=== PATIENT | male | born 1980 | race Caucasian/White ===

== ENCOUNTER 2020-05-15 20:58 | Emergency (ER) | payer OTHER ==
[2020-05-15 21:05] VITALS: BMI 30.4
[2020-05-15 21:51] LABS: BASO % 0.2 % (0-2.0); EOS % 4.4 % (0-4.5); HEMATOCRIT 47.4 % (35.4-49); HEMOGLOBIN 15.5 GM/dL (11.7-16.9); MCH 26.9 pg (25.7-33.7); MCHC 32.7 g/dl (32.0-35.9); MEAN CELL VOLUME 82.2 fl (80-96); MEAN PLT VOLUME 8.3 fl (7.5-11.1); MONO % 10.7 % (3.8-10.2); NEUT % 40.7 % (42.8-82.8); PLATELET COUNT 209 K/MM3 (134-434); RBC 5.76 M/mm3 (4.00-5.60)
[2020-05-15 22:00] LABS: INR 1.07 (0.83-1.09); PROTHROMBIN TIME (PATIENT) 12.9 SEC (9.7-13.0)
[2020-05-15 22:02] LABS: CHLORIDE 106 mmol/L (98-107); POTASSIUM 4.2 mmol/L (3.5-5.1); SODIUM 138 mmol/L (136-145)
[2020-05-15 22:03] LABS: ACTIVATED PTT 33.7 SECONDS (25.2-36.5)
[2020-05-15 22:04] LABS: ALBUMIN 4.3 g/dl (3.4-5.0); ANION GAP 4 MMOL/L (8-16); BLOOD UREA NITROGEN 23.8 mg/dL (7-18); CALCIUM 9.1 mg/dL (8.5-10.1); CO2 28 mmol/L (21-32); GLUCOSE,RANDOM 88 mg/dL (74-106)
[2020-05-15 22:07] LABS: SGOT/AST 23 U/L (15-37); SGPT/ALT 47 U/L (13-61)
[2020-05-15 22:08] LABS: CREATININE 1.1 mg/dL (0.55-1.3)
[2020-05-15 22:09] LABS: BILIRUBIN,TOTAL 0.3 mg/dL (0.2-1); TOT PROT 7.2 g/dl (6.4-8.2)
[2020-05-15 22:10] LABS: ALK PHOS 100 U/L (45-117)
[2020-05-15] MEDS ORDERED: ACETAMINOPHEN 500 MG TABLET (FP) PO ONE (22:24)
[2020-05-15] MEDS ORDERED: ACETAMINOPHEN 325 MG TABLET (FP) ONE (23:05)
[2020-05-16 01:27] VITALS: BP 127/76; PULSE 82; TEMP 98.9
== END 2020-05-16 01:27 | disposition home or self-care (01) ==
LOC: JER 20:58
DX: R07.89 Other chest pain (principal); R21 Rash and other nonspecific skin eruption
CPT/HCPCS: 36415; 71045-TC-FY; 80053; 82550; 82553; 84484; 85025; 85610; 85730; 93005; 93010; 99285-25

== ENCOUNTER 2020-08-09 08:06 | Emergency (ER) | payer OTHER ==
[2020-08-09 08:16] VITALS: BP 121/68; PULSE 87; TEMP 97.8; BMI 30.4
== END 2020-08-09 10:28 | disposition home or self-care (01) ==
LOC: JER 08:06
DX: S29.011A Strain of muscle and tendon of front wall of thorax, initial encounter (principal)
CPT/HCPCS: 71046-TC-FY; 93005; 93010; 99284-25

== ENCOUNTER 2022-02-01 16:45 | Emergency (ER) | payer OTHER ==
[2022-02-01 16:52] VITALS: BP 102/60; PULSE 95; RESP 18; TEMP 97.8; BMI 26.6
[2022-02-01] MEDS ORDERED: KETOROLAC TROMETHAMINE 30 MG/1 ML VIAL IM ONE (17:19)
[2022-02-01] MEDS ORDERED: KETOROLAC TROMETHAMINE 30 MG/1 ML VIAL ONE (17:20)
== END 2022-02-01 17:24 | disposition home or self-care (01) ==
LOC: JERFT 16:45
PROC: 3E0233Z Introduction of Anti-inflammatory into Muscle, Percutaneous Approach (ICD-10-PCS; principal; 2022-02-01)
DX: S16.1XXA Strain of muscle, fascia and tendon at neck level, initial encounter (principal); X50.3XXA Overexertion from repetitive movements, initial encounter
CPT/HCPCS: 99285-25